=== PATIENT | female | born 1985 | race Hispanic/Latino ===

== ENCOUNTER 2018-12-30 11:02 | Emergency (ER) | payer BC ==
[2018-12-30] MEDS ORDERED: Sodium Chloride 0.9% 1,000 ML IV ONE (11:34)
[2018-12-30] MEDS ORDERED: Sodium Chloride 0.9% 1,000 ML ONE (12:02)
[2018-12-30] MEDS ORDERED: Morphine 4 MG/ML VIAL ONE (12:02)
[2018-12-30 12:04] LABS: BASO # 0.1 K/uL (0.0-0.2); BASO % 0.4 % (0.0-2.0); EOS % 0.1 % (0.0-4.0); HEMOGLOBIN 14.9 g/dL (11.0-16.0); LYMPH # 0.6 K/uL (1.0-4.3); LYMPH % 4.1 % (20.0-40.0); MEAN CELL VOLUME 90.1 fL (81.0-99.0); MEAN CORPUSCULAR HEMOGLOBIN 30.1 pg (27.0-31.0); MEAN CORPUSCULAR HGB CONC 33.4 g/dL (33.0-37.0); MEAN PLATELET VOLUME 8.8 fL (7.2-11.7); MONO # 0.3 K/uL (0.0-0.8); NEUT # 14.2 K/uL (1.8-7.0); NEUT % 93.4 % (50.0-75.0); PLATELET COUNT 291 K/uL (130-400); RBC 4.94 Mil/uL (3.80-5.20); RED CELL DISTRIBUTION WIDTH 12.3 % (11.5-14.5); WHITE BLOOD COUNT 15.2 K/uL (4.8-10.8)
[2018-12-30 12:07] LABS: HCG,QUALITATIVE URINE NEGATIVE (NEGATIVE)
[2018-12-30 12:19] LABS: BLOOD UREA NITROGEN 15 mg/dL (7-17); CALCIUM 10.2 mg/dl (8.6-10.4); GFR NON-AFRICAN AMERICAN > 60; LIPASE 83 U/L (23-300); SQUAMOUS EPITHIAL 22 /hpf (0-5); URINE BACTERIA OCC (<OCC); URINE BILIRUBIN NEGATIVE (NEGATIVE); URINE BLOOD NEGATIVE (NEGATIVE); URINE CLARITY Hazy (Clear); URINE COLOR Yellow (YELLOW); URINE GLUCOSE (UA) NORMAL (Normal); URINE LEUKOCYTE ESTERASE NEG Leu/uL (Negative); URINE PROTEIN 2+ mg/dL (NEGATIVE); URINE UROBILINOGEN NORMAL mg/dL (0.2-1.0)
[2018-12-30 12:28] LABS: ALB/GLOB RATIO 1.6 (1.0-2.1); ALT/SGPT 8 U/L (9-52); AST/SGOT 32 U/L (14-36)
[2018-12-30 12:41] LABS: LYMPHOCYTE 6 % (20-40); MONOCYTE 2 % (0-10); NEUTROPHIL 92 % (50-75); PLATELET ESTIMATE NORMAL (NORMAL); TOTAL CELLS COUNTED 100
[2018-12-30] MEDS ORDERED: Iodixanol 320 MG/ML 100 ML BOTTLE IV ONE (13:11)
--- NOTE | 2018-12-30 14:17 | CT ---
Date of service: 12/30/2018 PROCEDURE: CT Abdomen and Pelvis with contrast HISTORY: SEVERE UPPER ABDOMINAL/LUQ PAIN Negative test (concurrent with this examination). COMPARISON: None. TECHNIQUE: Intravenous contrast dose: 100 cc Visipaque 320 Radiation dose: Total exam DLP = 324.26 mGy-cm. This CT exam was performed using one or more of the following dose reduction techniques: Automated exposure control, adjustment of the mA and/or kV according to patient size, and/or use of iterative reconstruction technique. FINDINGS: LOWER THORAX: Dependent atelectasis left lower lobe. LIVER: Unremarkable. No gross lesion or ductal dilatation. GALLBLADDER AND BILE DUCTS: Unremarkable. PANCREAS: Unremarkable. No gross lesion or ductal dilatation. SPLEEN: Unremarkable. ADRENALS: Unremarkable. No mass. KIDNEYS AND URETERS: Left kidney and ureter: Obstructing calculus 3 mm mid left ureter. Proximal hydroureter, hydronephrosis. Edematous left kidney with perinephric fluid. Additional midpole calculus 2 mm. Left kidney and ureter unremarkable. No hydronephrosis. No solid mass. VASCULATURE: Unremarkable. No aortic aneurysm. No atherosclerotic calcification or mural plaque present. BOWEL: Unremarkable. No obstruction. No gross mural thickening. APPENDIX: Normal appendix. PERITONEUM: Trace free fluid identified in the pelvis/cul de sac. No free air. LYMPH NODES: Unremarkable. No enlarged lymph nodes. BLADDER: Unremarkable. REPRODUCTIVE: Unremarkable. Incidental finding(s): Small contrast-enhancing follicles on the right with deformity suggesting recent rupture. BONES: No acute fracture. OTHER FINDINGS: None. IMPRESSION: High-grade obstruction of the left ureter secondary to 3 mm calculus. Proximal hydroureter, hydronephrosis noted. The left kidney is edematous with perinephric fluid. Additional benign and/or incidental findings described above.
[2018-12-30 15:06] VITALS: BP 95/63; PULSE 92; RESP 20; TEMP 98.8; O2SAT 96
--- NOTE | 2018-12-30 15:16 | C.PDOC ---
History Of Present Illness 33 year old female presents to the ED for evaluation of left-sided periumbilical pain which began two days ago and worsened at 0300 today. Patient reports associated nausea, vomiting and several episodes of diarrhea. Patient initially went to the urgent care, but was sent to the ED for immediate evaluation. She notes her LMP was during the beginning of November. She denies fever, chills, urinary complaints. Time Seen by Provider: 12/30/18 11:33 Chief Complaint (Nursing): Abdominal Pain History Per: Patient History/Exam Limitations: no limitations Onset/Duration Of Symptoms: Hrs Current Symptoms Are (Timing): Still Present Past Medical History Reviewed: Historical Data, Nursing Documentation, Vital Signs Vital Signs: Last Vital Signs Temp 98.8 F 12/30/18 15:05 Pulse 92 H 12/30/18 15:05 Resp 20 12/30/18 15:05 BP 95/63 L 12/30/18 15:05 Pulse Ox 96 12/30/18 15:05 - Medical History PMH: No Chronic Diseases Surgical History: No Surg Hx Family History: States: Unknown Family Hx - Social History Hx Alcohol Use: Yes Hx Substance Use: No - Immunization History Hx Tetanus Toxoid Vaccination: No Hx Influenza Vaccination: No Hx Pneumococcal Vaccination: No Review Of Systems Constitutional: Negative for: Fever, Chills Gastrointestinal: Positive for: Nausea, Vomiting, Abdominal Pain (left-sided, periumbilical ), Diarrhea Physical Exam - Physical Exam Appears: Non-toxic, Other (in moderate-severe pain, moaning ) Skin: Normal Color, Warm, Dry Head: Atraumatic, Normacephalic Eye(s): bilateral: Normal Inspection Oral Mucosa: Moist Neck: Supple Chest: Symmetrical, No Deformity, No Tenderness Cardiovascular: Rhythm Regular, No Murmur, Other (tachycardic) Respiratory: Normal Breath Sounds, No Rales, No Rhonchi, No Wheezing Gastrointestinal/Abdominal: Soft, Tenderness (left upper quadrant, left periumbilical ), No Guarding, No Rebound Back: CVA Tenderness (left-sided ) Extremity: Normal ROM, Capillary Refill (less than 2 seconds ) Neurological/Psych: Oriented x3, Normal Speech, Normal Cognition ED Course And Treatment - Laboratory Results Result Diagrams: 12/30/18 11:57 12/30/18 11:57 Lab Results: Total Bilirubin 1.1 mg/dL (0.2-1.3) 12/30/18 11:57 AST 32 U/L (14-36) 12/30/18 11:57 ALT 8 U/L (9-52) L 12/30/18 11:57 Alkaline Phosphatase 50 U/L (38-126) 12/30/18 11:57 Total Protein 8.2 g/dL (6.3-8.3) 12/30/18 11:57 Albumin 5.0 g/dL (3.5-5.0) 12/30/18 11:57 Globulin 3.2 gm/dL (2.2-3.9) 12/30/18 11:57 Albumin/Globulin Ratio 1.6 (1.0-2.1) 12/30/18 11:57 Lipase 83 U/L (23-300) 12/30/18 11:57 Urine Color Yellow (YELLOW) 12/30/18 11:57 Urine Clarity Hazy (Clear) 12/30/18 11:57 Urine pH 8.0 (5.0-8.0) 12/30/18 11:57 Ur Specific [place] 1.027 (1.003-1.030) 12/30/18 11:57 Urine Protein 2+ mg/dL (NEGATIVE) H 12/30/18 11:57 Urine Glucose (UA) Normal mg/dL (Normal) 12/30/18 11:57 Urine Ketones 1+ mg/dL (NEGATIVE) H 12/30/18 11:57 Urine Blood Negative (NEGATIVE) 12/30/18 11:57 Urine Nitrate Negative (NEGATIVE) 12/30/18 11:57 Urine Bilirubin Negative (NEGATIVE) 12/30/18 11:57 Urine Urobilinogen Normal mg/dL (0.2-1.0) 12/30/18 11:57 Ur Leukocyte Esterase Neg Suze/uL (Negative) 12/30/18 11:57 Urine WBC (Auto) 2 /hpf (0-5) 12/30/18 11:57 Urine RBC (Auto) 6 /hpf (0-3) H 12/30/18 11:57 Ur Squamous Epith Cells 22 /hpf (0-5) H 12/30/18 11:57 Urine Bacteria Occ (<OCC) H 12/30/18 11:57 Urine HCG, Qual Negative (NEGATIVE) 12/30/18 11:57 Urine HCG, Qual Negative (NEGATIVE) 12/30/18 11:57 O2 Sat by Pulse Oximetry: 96 (on RA ) Pulse Ox Interpretation: Normal - CT Scan/US CT A/P Other Rad Studies (CT/US): Read By Radiologist, Radiology Report Reviewed CT/US Interpretation: Date of service: 12/30/2018. PROCEDURE: CT Abdomen and Pelvis with contrast. HISTORY: SEVERE UPPER ABDOMINAL/LUQ PAIN. Negative test (concurrent with this examination). COMPARISON: None. TECHNIQUE: Intravenous contrast dose: 100 cc Visipaque 320. Radiation dose: Total exam DLP = 324.26 mGy-cm. This CT exam was performed using one or more of the following dose reduction techniques: Automated exposure control, adjustment of the mA and/or kV according to patient size, and/or use of iterative reconstruction technique. FINDINGS: LOWER THORAX: Dependent atelectasis left lower lobe. LIVER: Unremarkable. No gross lesion or ductal dilatation. GALLBLADDER AND BILE DUCTS: Unremarkable. PANCREAS: Unremarkable. No gross lesion or ductal dilatation. SPLEEN: Unremarkable. ADRENALS: Unremarkable. No mass. KIDNEYS AND URETERS: Left kidney and ureter: Obstructing calculus 3 mm mid left ureter. Proximal hydroureter, hydronephrosis. Edematous left kidney with perinephric fluid. Additional midpole calculus 2 mm. Left kidney and ureter unremarkable. No hydronephrosis. No solid mass. VASCULATURE: Unremarkable. No aortic aneurysm. No atherosclerotic calcification or mural plaque present. BOWEL: Unremarkable. No obstruction. No gross mural thickening. APPENDIX: Normal appendix. PERITONEUM: Trace free fluid identified in the pelvis/cul de sac. No free air. LYMPH NODES: Unremarkable. No enlarged lymph nodes. BLADDER: Unremarkable. REPRODUCTIVE: Unremarkable. Incidental finding(s): Small contrast-enhancing follicles on the right with deformity suggesting recent rupture. BONES: No acute fracture. OTHER FINDINGS: None. IMPRESSION: High-grade obstruction of the left ureter secondary to 3 mm calculus. Proximal hydroureter, hydronephrosis noted. The left kidney is edematous with perinephric fluid. Additional benign and/or incidental findings described above. Progress Note: Bloodwork, urinalysis, CT A/P ordered and reviewed. CT shows left kidney stone. Flomax PO, Morphine IVP, Toradol IVP and IV Fluids given. On reassessment, patient is resting comfortably, showing no signs of distress and reports an improvement in her symptoms. Patient is stable for discharge. Advised to follow up with PMD within 1-2 within 1-2 days for further evaluation. Disposition Counseled Patient/Family Regarding: Studies Performed, Diagnosis, Need For Followup, Rx Given - Disposition Referrals: Rory Owens MD [Staff Provider] - Disposition: HOME/ ROUTINE Disposition Time: 15:20 Condition: STABLE Additional Instructions: FOLLOW UP WITH UROLOGY WITHIN 1 WEEK DRINK PLENTY OF CLEAR FLUIDS USE PAIN MEDICATION NEEDED RETURN TO ER IF SYMPTOMS WORSEN Prescriptions: Naproxen 375 mg PO BID PRN #20 tablet PRN Reason: pain oxyCODONE/Acetaminophen [Percocet 5/325 mg Tab] 1 tab PO QID PRN #15 tab PRN Reason: Pain Tamsulosin [Flomax] 0.4 mg PO DAILY #5 cap Instructions: Renal Colic (DC) Forms: [employer] (Grenadian) Print Language: FRISIAN - Clinical Impression Clinical Impression: Renal colic on left side, Hydronephrosis, left - Scribe Statement The provider has reviewed the documentation as recorded by the Scribe (Maria Esther Pope) Provider Attestation: All medical record entries made by the Scribe were at my direction and personally dictated by me. I have reviewed the chart and agree that the record accurately reflects my personal performance of the history, physical exam, medical decision making, and the department course for this patient. I have also personally directed, reviewed, and agree with the discharge instructions and disposition.
== END 2018-12-30 16:01 | disposition home or self-care (01) ==
LOC: C.ER 11:02
DX: N13.2 Hydronephrosis with renal and ureteral calculous obstruction (principal)
CPT/HCPCS: 74177; 80053; 81001; 83690; 84703; 85025; 87086; 96361; 96374; 96375; 99284; J1885; J2270; J7030; Q9967